=== PATIENT | male | born 1970 ===

== ENCOUNTER 2018-05-18 14:26 | Emergency (ER) | payer OTHER ==
[2018-05-18 14:42] VITALS: RESP 18
[2018-05-18] MEDS ORDERED: Sodium Chloride 0.9% 1,000 ML IV ONE ×2 (15:31→17:31)
--- NOTE | 2018-05-18 16:31 | RAD ---
HISTORY: chest pain COMPARISON: None available. TECHNIQUE: Chest, one view. FINDINGS: Examination limited by habitus. LUNGS: No focal consolidation. Please note that chest x-ray has limited sensitivity for the detection of pulmonary masses. PLEURA: No significant pleural effusion identified. No definite pneumothorax . CARDIOVASCULAR: Heart size appears within normal limits. No significant atherosclerotic calcification present. OSSEOUS STRUCTURES: Degenerative changes. VISUALIZED UPPER ABDOMEN: Unremarkable. OTHER FINDINGS: None. IMPRESSION: No focal consolidation.
[2018-05-18 16:51] LABS: BASO # 0.1 K/uL (0.0-0.2); BASO % 1.2 % (0.0-2.0); EOS # 0.2 K/uL (0.0-0.7); EOS % 2.1 % (0.0-4.0); HEMOGLOBIN 15.2 g/dL (12.0-18.0); LYMPH # 2.2 K/uL (1.0-4.3); LYMPH % 31.6 % (20.0-40.0); MEAN CELL VOLUME 84.7 fL (80.0-94.0); MEAN CORPUSCULAR HEMOGLOBIN 28.6 pg (27.0-31.0); MEAN CORPUSCULAR HGB CONC 33.8 g/dL (33.0-37.0); MEAN PLATELET VOLUME 8.8 fL (7.2-11.7); MONO # 0.6 K/uL (0.0-0.8); MONO % 8.3 % (0.0-10.0); NEUT % 56.8 % (50.0-75.0); NRBC % 0.3 % (0.0-2.0); RBC 5.32 Mil/uL (4.40-5.90); RED CELL DISTRIBUTION WIDTH 12.9 % (11.5-14.5); WHITE BLOOD COUNT 7.1 K/uL (4.8-10.8)
[2018-05-18 16:55] LABS: URINE BILIRUBIN NEGATIVE (NEGATIVE); URINE BLOOD NEGATIVE (NEGATIVE); URINE CLARITY Clear (Clear); URINE COLOR Yellow (YELLOW); URINE GLUCOSE (UA) 3+ mg/dL (Normal); URINE LEUKOCYTE ESTERASE NEG Leu/uL (Negative); URINE PROTEIN NEGATIVE (NEGATIVE); URINE UROBILINOGEN NORMAL mg/dL (0.2-1.0)
[2018-05-18 17:09] LABS: ALB/GLOB RATIO 1.4 (1.0-2.1); ALBUMIN 4.8 g/dL (3.5-5.0); ALT/SGPT 28 U/L (21-72); AST/SGOT 36 U/L (17-59); BLOOD UREA NITROGEN 8 mg/dL (9-20); CALCIUM 9.3 mg/dl (8.6-10.4); GFR NON-AFRICAN AMERICAN > 60
[2018-05-18 18:22] VITALS: BP 136/89; PULSE 68; TEMP 97.4; O2SAT 100
--- NOTE | 2018-05-18 18:46 | C.PDOC ---
History Of Present Illness 47 y/o male,w/PMhx of diabetes, presents to the ER for evaluation of elevated blood sugar levels. Patient was evaluated by his PMD, and he was found to have blood sugar level 421. He notes that referred him to the ER to rule out DKA. Patient is complaining of polydipsia and polysuria. He notes that he is compliant with his medications.Denies having fever, chills,CP, SOB, nausea, and vomiting. Time Seen by Provider: 05/18/18 15:14 Chief Complaint (Nursing): High Blood Sugar History Per: Patient History/Exam Limitations: no limitations Onset/Duration Of Symptoms: Hrs Current Symptoms Are (Timing): Still Present Severity: Moderate Past Medical History Reviewed: Historical Data, Nursing Documentation, Vital Signs Vital Signs: Last Vital Signs Temp 97.4 F L 05/18/18 18:22 Pulse 68 05/18/18 18:22 Resp 18 05/18/18 18:22 BP 136/89 05/18/18 18:22 Pulse Ox 100 05/18/18 18:22 - Medical History PMH: Diabetes, HTN Surgical History: No Surg Hx Family History: States: No Known Family Hx - Social History Hx Alcohol Use: No Hx Substance Use: No Review Of Systems Except As Marked, All Systems Reviewed And Found Negative. Constitutional: Positive for: Other (polydipsia). Negative for: Fever, Chills Cardiovascular: Negative for: Chest Pain Respiratory: Negative for: Shortness of Breath Gastrointestinal: Negative for: Nausea, Vomiting Genitourinary: Positive for: Other (polyuria) Physical Exam - Physical Exam Appears: Non-toxic, No Acute Distress Skin: Normal Color, Warm, Dry Head: Atraumatic, Normacephalic Eye(s): bilateral: Normal Inspection Nose: Normal Oral Mucosa: Moist Neck: Supple Chest: Symmetrical Cardiovascular: Rhythm Regular Respiratory: Normal Breath Sounds, No Rales, No Rhonchi, No Wheezing Gastrointestinal/Abdominal: Soft, No Tenderness, No Guarding, No Rebound Neurological/Psych: Oriented x3, Normal Speech ED Course And Treatment - Laboratory Results Result Diagrams: 05/18/18 16:46 05/18/18 16:46 Lab Results: Troponin I < 0.0120 ng/mL (0.00-0.120) 05/18/18 16:46 Total Bilirubin 1.3 mg/dL (0.2-1.3) 05/18/18 16:46 AST 36 U/L (17-59) 05/18/18 16:46 ALT 28 U/L (21-72) 05/18/18 16:46 Alkaline Phosphatase 110 U/L (38-126) 05/18/18 16:46 Total Protein 8.1 g/dL (6.3-8.3) 05/18/18 16:46 Albumin 4.8 g/dL (3.5-5.0) 05/18/18 16:46 Globulin 3.3 gm/dL (2.2-3.9) 05/18/18 16:46 Albumin/Globulin Ratio 1.4 (1.0-2.1) 05/18/18 16:46 Urine Color Yellow (YELLOW) 05/18/18 16:46 Urine Clarity Clear (Clear) 05/18/18 16:46 Urine pH 7.0 (5.0-8.0) 05/18/18 16:46 Ur Specific [place] 1.040 (1.003-1.030) H 05/18/18 16:46 Urine Protein Negative mg/dL (NEGATIVE) 05/18/18 16:46 Urine Glucose (UA) 3+ mg/dL (Normal) H 05/18/18 16:46 Urine Ketones 1+ mg/dL (NEGATIVE) H 05/18/18 16:46 Urine Blood Negative (NEGATIVE) 05/18/18 16:46 Urine Nitrate Negative (NEGATIVE) 05/18/18 16:46 Urine Bilirubin Negative (NEGATIVE) 05/18/18 16:46 Urine Urobilinogen Normal mg/dL (0.2-1.0) 05/18/18 16:46 Ur Leukocyte Esterase Neg Fanny/uL (Negative) 05/18/18 16:46 Urine RBC (Auto) < 1 /hpf (0-3) 05/18/18 16:46 ECG: Interpreted By Me, Viewed By Me ECG Rhythm: Sinus Rhythm Interpretation Of ECG: NSR with non specific T wave changes and artifact Rate From EC O2 Sat by Pulse Oximetry: 100 (RA) Pulse Ox Interpretation: Normal Medical Decision Making Medical Decision Making: Plan: --Labs --UA --CXR --IV Fluids Updates: On re-evaluation, patient feels better. Patient has Accu ChecK 291. Patient has been discharged and instructed to follow up with PMD. Disposition Counseled Patient/Family Regarding: Studies Performed, Diagnosis, Need For Followup - Disposition Referrals: Rebecca Marie MD [Staff Provider] - Disposition Time: 18:48 Instructions: Hyperglycemia, Adult (DC) Forms: [facility] (Welsh), General Discharge Instructions - POA Present On Arrival: Poor Glycemic Control - Clinical Impression Clinical Impression: Hyperglycemia, Uncontrolled diabetes mellitus - Scribe Statement The provider has reviewed the documentation as recorded by the Ashley Yeung Provider Attestation: All medical record entries made by the Emekaibe were at my direction and personally dictated by me. I have reviewed the chart and agree that the record accurately reflects my personal performance of the history, physical exam, medical decision making, and the department course for this patient. I have also personally directed, reviewed, and agree with the discharge instructions and disposition.
--- NOTE | 2018-05-19 11:10 | CARD ---
APPROVED REPORT Date of service: 05/18/2018 EKG Measurement Heart [id number] <Conclusion> Normal sinus rhythm baseline artifact please repeat
== END 2018-05-18 19:05 | disposition home or self-care (01) ==
LOC: C.ER 14:26
DX: E11.65 Type 2 diabetes mellitus with hyperglycemia (principal)
CPT/HCPCS: 71045; 80053; 81001; 82948; 84484; 85025; 93005; 96360; 96361; 99285; J7030